=== PATIENT | female | born 1995 | race Two or more races ===

== ENCOUNTER 2016-04-04 21:21 | Emergency (ER) | payer SELFPAY ==
[2016-04-05] MEDS ORDERED: LIDOCAINE 1% INJ-PF (10 MG/ML) 30 ML SDV INJ ONE (01:14)
[2016-04-05] MEDS ORDERED: BUPIVACAINE HCL 0.5 % INJ/PF 30 ML SDV INJ ONE (01:14)
[2016-04-05] MEDS ORDERED: CEPHALEXIN 500 MG CAPSULE PO ONE (02:20)
--- NOTE | 2016-04-05 02:20 | ER Document Report ---
ED General - General Chief Complaint: Foot Pain Stated Complaint: LEFT FOOT PAIN Notes: Patient is a 20-year-old female presents for complaints of pain in her large toe. History was obtained using the language line for English interpretation. Initial japanese interpreter used for history of present illness and exam was japanese interpreter number [id number]. Patient is 20-year-old female complains of pain in her left big toe. Patient said she had trimmed her toenails to close several days ago and then developed a swelling on the medial aspect of the nailbed. This causes a paronychia. She did apply pressure to the area leave some pus. No fevers. No vomiting. It hurts to walk or ambulate. This or swelling into the foot itself. TRAVEL OUTSIDE OF THE [place] IN LAST 30 DAYS: No - Related Data Allergies/Adverse Reactions: No Known Allergies Allergy (Verified 04/13/15 16:59) Past Medical History - Social History Smoking Status: Unknown if Ever Smoked Frequency of alcohol use: None Drug Abuse: None Family History: Reviewed & Not Pertinent Patient has suicidal ideation: No Patient has homicidal ideation: No Renal/ Medical History: Denies: Hx Peritoneal Dialysis - Immunizations Immunizations up to date: Yes Hx Diphtheria, Pertussis, Tetanus Vaccination: No Review of Systems - Review of Systems Notes: My Normal Review Basic REVIEW OF SYSTEMS: CONSTITUTIONAL : Denies fever, chills, or sweats. Denies recent illness. MUSCULOSKELETAL: Paronychia of left big toe. SKIN: Denies rash or skin lesions. NEUROLOGICAL: Denies altered mental status or loss of consciousness. Denies weakness or paralysis or loss of use of either side. Denies problems with gait or speech. Denies sensory or motor loss. ALL OTHER SYSTEMS REVIEWED AND NEGATIVE. Physical Exam - Vital signs Vitals: Temp Pulse Resp BP Pulse Ox 98.1 F 82 16 138/72 H 99 04/04/16 21:21 04/04/16 21:21 04/04/16 21:21 04/04/16 21:21 04/04/16 21:21 - Notes Notes: General Appearance: Well nourished, alert, cooperative, no acute distress, no obvious discomfort. Vitals: reviewed, See vital signs table. Extremities: strength 5/5 in all extremities, good pulses in all extremities, redness and swelling to the medial side of the left big toenail. This consistent with paronychia.., no edema. Skin: warm, dry, appropriate color, no rash Neuro: speech clear, oriented x 3, normal affect, responds appropriately to questions. Course - Vital Signs Vital signs: Temp Pulse Resp BP Pulse Ox 98.1 F 62 16 132/88 H 98 04/05/16 02:51 04/05/16 02:51 04/05/16 02:51 04/05/16 02:51 04/05/16 02:51 - Transfer of Care Notes: 04/05/16 06:40 I did do a wedge resection of the medial aspect of left toe. This is to read relief to the paronychia. Patient will be placed on Keflex. Patient encouraged return to ER if she has increased redness or swelling or feels unwell. Patient agrees with plan will be discharged home. Ductions were into the patient by me verbally using the language line japanese interpreter #[id number]. Dictation of this chart was performed using voice recognition software; therefore, there may be some unintended grammatical errors. Procedures - Nail Trephanation/Removal Left Great toe Nail Trepanation/Removal Location: wedge resection left toenail Betadine prep applied: No - ChloraPrep used Method of Drainage: Other - Small wedge medial aspect of left PICC toe was cut and freed up using scissors and then pulled away with tweezers. Notes: 04/05/16 06:42 No complications. 04/05/16 06:42 Discharge - Discharge Clinical Impression: Paronychia Qualifiers: Laterality: left Qualified Code(s): L03.012 - Cellulitis of left finger Condition: Good Disposition: HOME, SELF-CARE Additional Instructions: Paronychia You have an infection between the nail and the surrounding skin, called a paronychia. The germs infect the area after a minor skin injury, such as a hangnail. This infection is treated by releasing the pus. This is usually done by the skin from the nail. If the infection has spread underneath the nail, partial removal of the nail may be necessary. Hot-soak the area three or four times daily. Antibiotics are often given, but are not always necessary. Healing takes about a week. If pain or swelling becomes severe or if you develop fever or chills, call the doctor or return for re-examination. Please return to the ER immediately if you develop worsening swelling, redness, fevers, or feel unwell. Prescriptions: Cephalexin Monohydrate [Keflex 500 mg Capsule] 500 mg PO QID #28 capsule
[2016-04-05 02:52] VITALS: BP 132/88
== END 2016-04-05 02:52 | disposition home or self-care (01) ==
LOC: ER 21:21
PROC: 0HDRXZZ Extraction of Toe Nail, External Approach (ICD-10-PCS; principal; 2016-04-04)
DX: M79.674 Pain in right toe(s) (principal); L03.032 Cellulitis of left toe; M79.675 Pain in left toe(s)
CPT/HCPCS: 99283

== ENCOUNTER 2017-03-01 13:19 | Emergency (ER) | payer SELFPAY ==
[2017-03-01 13:24] VITALS: BP 125/74
--- NOTE | 2017-03-01 15:18 | ER Document Report ---
ED Eye Complaint - General Chief Complaint: Eye Pain Stated Complaint: EYE PAIN Time Seen by Provider: 03/01/17 14:33 Mode of Arrival: Ambulatory Information source: Patient Notes: Patient is 21 year old female who presents back to Er from a visit on 02-25-17. with complaint of incrasing left eye pain. She was seen on the and diagnosed with a corneal abrasion and started on Poly trim drops. There was no known history of trauma. She woke up with the discomfort. She works as a house keeper. She denies any other Medical history. She states she has continued to use the drops as instructed. States she started to get better but 2 days ago pain increased. She contacted the correctional medicine physician given for followup but could not get appointment until next week. She does not wear any corrective or cosmetic lenses. TRAVEL OUTSIDE OF THE [place] IN LAST 30 DAYS: No - HPI Onset: Other - 4 days Eye location: Left Injury: No Occurred at: Other - unknown woke up with Quality of pain: Achy, Sharp Severity: Moderate Pain Level: 3 Associated symptoms: Burning, Pain, Redness - Related Data Allergies/Adverse Reactions: No Known Allergies Allergy (Verified 03/01/17 13:21) Past Medical History - General Information source: Patient - Social History Smoking Status: Never Smoker Cigarette use (# per day): No Chew tobacco use (# tins/day): No Smoking Education Provided: No Frequency of alcohol use: None Drug Abuse: None Family History: Reviewed & Not Pertinent Patient has suicidal ideation: No Patient has homicidal ideation: No Renal/ Medical History: Denies: Hx Peritoneal Dialysis - Immunizations Immunizations up to date: Yes Hx Diphtheria, Pertussis, Tetanus Vaccination: No Review of Systems - Review of Systems Constitutional: No symptoms reported EENT: Eye pain, Eye discharge, Blurred vision Cardiovascular: No symptoms reported Respiratory: No symptoms reported Gastrointestinal: No symptoms reported Genitourinary: No symptoms reported Female Genitourinary: No symptoms reported Musculoskeletal: No symptoms reported Skin: No symptoms reported Hematologic/Lymphatic: No symptoms reported Neurological/Psychological: No symptoms reported -: Yes All other systems reviewed and negative Physical Exam - Vital signs Vitals: Temp Pulse Resp BP Pulse Ox 98.1 F 78 14 125/74 99 03/01/17 13:24 03/01/17 13:24 03/01/17 13:24 03/01/17 13:24 03/01/17 13:24 Interpretation: Normal - General General appearance: Alert, Other - Uncomfortable appearing - HEENT Head: Normocephalic, Atraumatic Eyes: Tears Conjunctiva: Injected Cornea: Corneal ulcer, Other - Under slit lamp there appears to be an area at about the 4 oclock position that extends upward about 3 to 4 mm and appears to be about 2 mm wide. It is greyish in color and appears 3 demential. it does have an irregular shape. Appears that it is a corneal abscess by looks. Extraocular movements intact: Yes Eyelashes: Normal Pupils: PERRL Nasal: Normal Mouth/Lips: Normal Mucous membranes: Normal, Moist - Respiratory Respiratory status: No respiratory distress Breath sounds: Normal. No: Decreased air movement, Nonproductive cough, Productive cough, Rales, Rhonchi, Stridor, Wheezing, Other - Cardiovascular Rhythm: Regular Heart sounds: Normal auscultation Murmur: No - Neurological Neuro grossly intact: Yes Cognition: Normal Orientation: AAOx4 [place] Coma Scale Eye Opening: Spontaneous Rose Coma Scale Verbal: Oriented [place] Coma Scale Motor: Obeys Commands [place] Coma Scale Total: 15 Speech: Normal Course - Vital Signs Vital signs: Temp Pulse Resp BP Pulse Ox 98.1 F 78 14 125/74 99 03/01/17 13:24 03/01/17 13:24 03/01/17 13:24 03/01/17 13:24 03/01/17 13:24 - Transfer of Care Notes: 03/05/17 09:[address] Manuel also look at under slit lamp. He was in agreement with me and also suggested that we get her to an correctional medicine physician at once. I put out a call to Assessment Nurse Practitioner block m[facility] Dr Peña who contacted me right back and when I explained to him the findings he requested that she be sent to his office on discharge. Since it was 4pm already patient was discharged directly to his office. I had the nurse print a map and it showed the office to be within 1 to 2 blocks of the hospital. We did communication through the senior game developer computer so patient understood the severity of the condition and that if she did not go directly there she could lose her eyesight in the left eye. She acknowledged understanding of these orders. Discharge - Discharge Clinical Impression: Corneal abscess of left eye Corneal abrasion Qualifiers: Encounter type: subsequent encounter Laterality: left Qualified Code(s): S05.02XD - Injury of conjunctiva and corneal abrasion without foreign body, left eye, subsequent encounter Disposition: HOME, SELF-CARE Additional Instructions: As we have discussed and through the content developer go directly to Dr. Peña he will continue with your care for this problem. Given a problem after that return to ER for recheck. Forms: Elevated Blood Pressure Referrals: KIKO PEÑA DO [ACTIVE STAFF] - Follow up as needed
== END 2017-03-01 15:28 | disposition home or self-care (01) ==
LOC: ER 13:19
DX: S05.02XA Injury of conjunctiva and corneal abrasion without foreign body, left eye, initial encounter (principal); H16.312 Corneal abscess, left eye; X58.XXXA Exposure to other specified factors, initial encounter; H57.12 Ocular pain, left eye
CPT/HCPCS: 99283

== ENCOUNTER 2017-06-01 19:52 | Emergency (ER) | payer SELFPAY ==
[2017-06-01 20:56] LABS: APPEARANCE,URINE CLEAR; BILIRUBIN,URINE NEGATIVE (NEGATIVE); COLOR,URINE STRAW; GLUCOSE, URINE NEGATIVE (NEGATIVE); KETONES,URINE NEGATIVE (NEGATIVE); LEUKOCYTE ESTERASE,URINE MODERATE (NEGATIVE); NITRITE,URINE NEGATIVE (NEGATIVE); PROTEIN,URINE NEGATIVE (NEGATIVE); URINE SPECIFIC GRAVITY 1.015; UROBILINOGEN,URINE NEGATIVE mg/dL (<2.0)
--- NOTE | 2017-06-01 20:58 | ER Document Report ---
ED General - General Chief Complaint: Abdominal Pain Stated Complaint: ABDOMINAL PAIN Time Seen by Provider: 06/01/17 20:22 Mode of Arrival: Ambulatory Information source: Patient - window sash installer used Notes: 21-year-old female with no reported past medical history presents with complaints of left lower quadrant pain that started 1 week prior to arrival. She states initially she had pain in the right and left lower quadrant but now is only feeling pain in the left lower quadrant. She describes it as a cramping pain that is intermittent. She denies any prior similar symptoms. She has not taken any medication for this. She denies any vaginal discharge, dysuria but does report increased urinary frequency. She is sexually active with her . She denies concern for sexually transmitted disease. Last menstrual period was May 01, 2017. She does not believe that she is . She does not use control. She denies any fever, chills, nausea, vomiting, back pain. TRAVEL OUTSIDE OF THE [place] IN LAST 30 DAYS: No - HPI Onset: Last week Onset/Duration: Gradual, Intermittent Quality of pain: Cramping Severity: Mild Pain Level: 1 Associated symptoms: denies: Fever, Nausea, Vomiting Exacerbated by: Movement, Coughing Relieved by: Remaining still Similar symptoms previously: No Recently seen / treated by doctor: No - Related Data Allergies/Adverse Reactions: No Known Allergies Allergy (Verified 06/01/17 19:56) Past Medical History - General Information source: Patient - Social History Smoking Status: Never Smoker Frequency of alcohol use: None Drug Abuse: None Lives with: Family, Spouse/Significant other Family History: Reviewed & Not Pertinent Patient has suicidal ideation: No - Medical History Medical History: Negative Renal/ Medical History: Denies: Hx Peritoneal Dialysis - Immunizations Immunizations up to date: Yes Hx Diphtheria, Pertussis, Tetanus Vaccination: No Review of Systems - Review of Systems Constitutional: See HPI. denies: Chills, Fever Cardiovascular: denies: Chest pain Respiratory: denies: Short of breath Gastrointestinal: Abdominal pain. denies: Diarrhea, Nausea, Vomiting, Constipation, Poor appetite, Poor fluid intake Genitourinary: Frequency. denies: Dysuria Female Genitourinary: Last menstrual period - 05/01/17, Irregular period. denies : Vaginal discharge, Vaginal odor, Painful intercourse Physical Exam - Vital signs Vitals: Temp Pulse Resp BP Pulse Ox 98.6 F 79 18 141/73 H 100 06/01/17 20:10 06/01/17 20:10 06/01/17 20:10 06/01/17 20:10 06/01/17 20:10 Interpretation: Normal. No: Tachycardic, Febrile - General General appearance: Appears well, Alert In distress: None - Abdominal Inspection: Normal Distension: No distension Bowel sounds: Normal Tenderness: Tender. No: McBurney's point - Tender to palpation in the left lower quadrant without guarding or rebound, Mo's sign, Guarding, Rebound Organomegaly: No organomegaly - Genitourinary External exam: Normal. No: Lesions Speculum exam: Cervix closed, Vaginal discharge Vaginal bleeding: None Bimanuel exam: Normal Course - Re-evaluation Re-evalutation: 06/01/17 21:07 Pelvic exam performed. Tylenol administered for pain HCG positive 06/01/17 23:28 21-year-old female presents with complaint of left lower quadrant pain that started 1 week prior to arrival. Upon arrival vitals reviewed and within normal limits. Patient does not appear toxic or dehydrated. She is in no acute distress. Patient found to have a positive test with a hCG quant of 485. Transvaginal ultrasound was performed but could not identify an intrauterine .Other significant findings include a UTI for which the patient received Macrobid.window sash installer was used to go over results findings, instructions. Patient was instructed to return in 48 hours for repeat quant. She was also instructed to return to the emergency department if she experienced any vaginal bleeding or worsening abdominal pain. Patient expresses understanding. She was provided a prescription for Macrobid. Laboratory 06/01/17 06/01/17 06/01/17 20:30 21:06 21:06 WBC RBC Hgb Hct MCV MCH MCHC RDW Plt Count Seg Neutrophils % Lymphocytes % Monocytes % Eosinophils % Basophils % Absolute Neutrophils Absolute Lymphocytes Absolute Monocytes Absolute Eosinophils Absolute Basophils Beta HCG, Quant Total Beta HCG Urine Color STRAW Urine Appearance CLEAR Urine pH 7.0 Ur Specific [place] 1.015 Urine Protein NEGATIVE Urine Glucose (UA) NEGATIVE Urine Ketones NEGATIVE Urine Blood NEGATIVE Urine Nitrite NEGATIVE Urine Bilirubin NEGATIVE Urine Urobilinogen NEGATIVE Ur Leukocyte Esterase MODERATE H Urine WBC (Auto) 1 Urine RBC (Auto) 1 Urine Bacteria (Auto) TRACE Squamous Epi Cells Auto 2 Urine Mucus (Auto) RARE Urine Ascorbic Acid NEGATIVE Urine HCG, Qual POSITIVE H Bacteria (Wet Prep) 3+ BACTERIA SEEN Trichomonas (Wet Prep) NO TRICHOMONAS SEEN Vaginal WBC 3+ WBCS SEEN Vaginal Yeast NO YEAST SEEN Chlamydia DNA (PCR) NOT DETECTED N.gonorrhoeae DNA (PCR) NOT DETECTED Blood Type Rhogam Indicated 06/01/17 06/01/17 06/01/17 21:20 21:20 21:25 WBC 14.8 H RBC 4.25 Hgb 13.4 Hct 38.8 MCV 91 MCH 31.5 MCHC 34.5 RDW 12.9 Plt Count 415 Seg Neutrophils % 51.4 Lymphocytes % 41.8 Monocytes % 5.1 Eosinophils % 1.2 Basophils % 0.5 Absolute Neutrophils 7.6 Absolute Lymphocytes 6.2 H Absolute Monocytes 0.7 Absolute Eosinophils 0.2 Absolute Basophils 0.1 Beta HCG, Quant 483.93 H Total Beta HCG POSITIVE Urine Color Urine Appearance Urine pH Ur Specific [place] Urine Protein Urine Glucose (UA) Urine Ketones Urine Blood Urine Nitrite Urine Bilirubin Urine Urobilinogen Ur Leukocyte Esterase Urine WBC (Auto) Urine RBC (Auto) Urine Bacteria (Auto) Squamous Epi Cells Auto Urine Mucus (Auto) Urine Ascorbic Acid Urine HCG, Qual Bacteria (Wet Prep) Trichomonas (Wet Prep) Vaginal WBC Vaginal Yeast Chlamydia DNA (PCR) N.gonorrhoeae DNA (PCR) Blood Type O POSITIVE Rhogam Indicated RHOGAM NOT INDICATED Obstetrics Ultrasound 06/01/17 21:05 IMPRESSION: No intrauterine identified. Differential diagnosis includes early occult viable gestation, gestational loss, and occult ectopic gestation. - Vital Signs Vital signs: Temp Pulse Resp BP Pulse Ox 98.6 F 79 18 141/73 H 100 06/01/17 20:10 06/01/17 20:10 06/01/17 20:10 06/01/17 20:10 06/01/17 20:10 - Laboratory Result Diagrams: 06/01/17 21:20 Laboratory results interpreted by me: 06/01/17 06/01/17 06/01/17 20:30 21:20 21:25 WBC 14.8 H Absolute Lymphocytes 6.2 H Beta HCG, Quant 483.93 H Ur Leukocyte Esterase MODERATE H Urine HCG, Qual POSITIVE H Procedures - Pelvic Exam Pelvic exam Cultures obtained: Yes Wet prep obtained: Yes Herpes culture obtained: No POC sent to lab: Yes Foreign body removed: No Bimanual exam performed: Yes - No adnexal mass or tenderness Discharge - Discharge Clinical Impression: Abdominal pain during , UTI (urinary tract infection) Condition: Good Disposition: HOME, SELF-CARE Additional Instructions: Lolis pruebas de laboratorio hoy muestran que est embarazada. [place] nivel de hormonas es muy bajo y no hemos podido detectar un embarazo en [place] ultrasonido. Tambin descubrimos que tiene rashmi infeccin del tracto urinario. Debe regresar en 48 horas para repetir el nivel de la hormona. Por favor regrese a la steve de emergencia si experimenta un empeoramiento del dolor, sangrado vaginal. Est muy temprano en [place] embarazo y en [place] tempranas es normal no krystal un embarazo intrauterino en el ultrasonido. Por favor, anita un seguimiento con el departamento de wendi para la atencin . Prescriptions: Nitrofurantoin Monohyd/M-Cryst [Macrobid 100 mg Capsule] 1 tab PO BID #20 capsule Forms: Follow-Up Outpatient Testing
[2017-06-01] MEDS ORDERED: ACETAMINOPHEN 325 MG TABLET PO ONE (21:06)
[2017-06-01 21:30] LABS: BACTERIA (WET MOUNT) 3+ BACTERIA SEEN; T.VAGINALIS (WET MOUNT) NO TRICHOMONAS SEEN; WBCS (WET MOUNT) 3+ WBCS SEEN; YEAST (WET MOUNT) NO YEAST SEEN
[2017-06-01 21:37] LABS: ABSOLUTE BASOPHILS # (AUTO) 0.1 10^3/uL (0.0-0.2); ABSOLUTE EOSINOPHILS # (AUTO) 0.2 10^3/uL (0.0-0.6); ABSOLUTE LYMPHOCYTES (AUTO) 6.2 10^3/uL (0.5-4.7); ABSOLUTE MONOCYTES (AUTO) 0.7 10^3/uL (0.1-1.4); ABSOLUTE NEUT (AUTO) 7.6 10^3/uL (1.7-8.2); BASOPHILS % (AUTO) 0.5 % (0-2); EOSINOPHILS % (AUTO) 1.2 % (0-6); HEMATOCRIT 38.8 % (36.0-47.0); HEMOGLOBIN 13.4 g/dL (12.0-15.5); LYMPHOCYTES % (AUTO) 41.8 % (13-45); MEAN CORPUSCULAR HEMOGLOBIN 31.5 pg (27.0-33.4); MEAN CORPUSCULAR HGB CONC 34.5 g/dL (32.0-36.0); MEAN CORPUSCULAR VOLUME 91 fl (80-97); MONOCYTES % (AUTO) 5.1 % (3-13); PLATELET COUNT 415 10^3/uL (150-450); RED BLOOD COUNT 4.25 10^6/uL (3.72-5.28); RED CELL DISTRIBUTION WIDTH 12.9 % (11.5-14.0); SEGMENTED NEUTROPHILS % (AUTO) 51.4 % (42-78); TOTAL CELLS COUNTED % (AUTO) 100 %; WHITE BLOOD COUNT 14.8 10^3/uL (4.0-10.5)
[2017-06-01] MEDS ORDERED: NITROFURANTOIN MONOHYD/M-CRYST 100 MG CAPSULE PO ONE (22:18)
[2017-06-01 22:42] LABS: CHLAM PCR NOT DETECTED (NOT DETECT); GON PCR NOT DETECTED (NOT DETECT)
--- NOTE | 2017-06-01 22:59 | RADIOLOGY REPORT (SQ) ---
EXAM DESCRIPTION: U/S OB TRANSVAGINAL W/O DOP CLINICAL HISTORY: 21 years, Female, pain in COMPARISON: None. TECHNIQUE: Transvaginal LIMITATIONS: None. FINDINGS: No intrauterine discerned. 8.5 cm uterus with 1.8 cm endometrial stripe thickness, 2.4 cm cervical length, nabothian cysts, 3.6 cm right ovary, 2.6 cm left ovary, appear otherwise normal, nongravid size, shape, echotexture, and vascularity. No free fluid. IMPRESSION: No intrauterine identified. Differential diagnosis includes early occult viable gestation, gestational loss, and occult ectopic gestation.
[2017-06-02 00:37] VITALS: BP 138/72
== END 2017-06-02 00:37 | disposition home or self-care (01) ==
LOC: ER 19:52
DX: O23.41 Unspecified infection of urinary tract in pregnancy, first trimester (principal); O26.891 Other specified pregnancy related conditions, first trimester; R10.32 Left lower quadrant pain; Z3A.01 Less than 8 weeks gestation of pregnancy
CPT/HCPCS: 99284; 86900; 86901; 36415; 87210; 84702; 85025; 81025; 81001; 87491; 87591; 76817; J8499

== ENCOUNTER → 2017-06-04 | Outpatient (CLI) | payer SELFPAY | LOC: LAB 15:12 | PROVIDERS: ATTEND Student in an Organized Health Care Education/Training Program | DX: O26.899 Other specified pregnancy related conditions, unspecified trimester (principal); R10.9 Unspecified abdominal pain; Z3A.00 Weeks of gestation of pregnancy not specified | CPT/HCPCS: 36415; 84702 ==

== ENCOUNTER 2017-06-07 13:30 | Emergency (ER) | payer SELFPAY ==
[2017-06-07 15:51] LABS: APPEARANCE,URINE CLOUDY; BILIRUBIN,URINE NEGATIVE (NEGATIVE); COLOR,URINE YELLOW; GLUCOSE, URINE NEGATIVE (NEGATIVE); KETONES,URINE NEGATIVE (NEGATIVE); LEUKOCYTE ESTERASE,URINE NEGATIVE (NEGATIVE); NITRITE,URINE NEGATIVE (NEGATIVE); PROTEIN,URINE NEGATIVE (NEGATIVE); URINE SPECIFIC GRAVITY 1.009; UROBILINOGEN,URINE NEGATIVE mg/dL (<2.0)
--- NOTE | 2017-06-07 17:37 | RADIOLOGY REPORT (SQ) ---
EXAM DESCRIPTION: U/S OB TRANSVAGINAL W/O DOP COMPLETED DATE/TIME: 06/07/2017 5:19 pm REASON FOR STUDY: pelvic pain/preg COMPARISON: 06/01/2017 TECHNIQUE: Transvaginal static and realtime grayscale images acquired of the pelvis. Additional ruma cted spectral and color Doppler images recorded. All images stored on PACs. bHC,004 06/07/2017 ; 2,065 on 06/04/2017 LIMITATIONS: None. FINDINGS: FETUS: Living intrauterine . EGA: 5 weeks 3 days by gestational sac size. pole and yolk sac and cardiac motion not seen. DAVID: 02/04/2018 FHR: Not seen. Beats per minute. SUBCHORIONIC BLEED: Questionable. SIZE OF BLEED: 4 x 6 mm. UTERUS: No masses or anomalies. 9.1 x 4.8 x 4.7 cm. CERVICAL LENGTH: 3.4 cm. Closed. RIGHT ADNEXA: Normal ovary with normal vascular flow. 2.6 x 2.5 x 4 cm. There is a 1 x 1.4 x 0.9 cm hypoechoic area. No adnexal free fluid. No adnexal masses. LEFT ADNEXA: Normal ovary with normal vascular flow. 2.7 x 1.8 x 2.1 centimeters. No adnexal free fluid. No adnexal masses. FREE FLUID: None. OTHER: No other significant finding. IMPRESSION: There appears to be an early intrauterine gestational 5 weeks 3 days based upon gestatio nal sac size. Follow-up as clinically indicated. Trimester of : First - 0 to 13 weeks. TECHNICAL DOCUMENTATION: JOB ID: [id number] [employer]- All Rights Reserved Reading location - IP/workstation name: [email or web address]
--- NOTE | 2017-06-07 18:14 | ER Document Report ---
ED General - General Chief Complaint: Abdominal Pain Stated Complaint: ABDOMINAL PAIN Time Seen by Provider: 06/07/17 15:18 Mode of Arrival: Ambulatory Information source: Patient Notes: Patient was interviewed through Candi whitmore avionics shop supervisor. Patient states that she was seen here recently and instructed that she was and had a urinary tract infection. She has been taking her antibiotic but she continues to have some lower abdominal pain. Ultrasound on her original visit showed no evidence of an IUP. However patient's beta was only 2400. Patient has had no vaginal discharge or bleeding. No vomiting. Patient has been one other time. Nothing makes pain better or worse. It does not radiate. Patient describes the pain as sharp. It is intermittent. TRAVEL OUTSIDE OF THE [place] IN LAST 30 DAYS: No - Related Data Allergies/Adverse Reactions: No Known Allergies Allergy (Verified 06/01/17 19:56) Past Medical History - General Information source: Patient - Social History Smoking Status: Never Smoker Frequency of alcohol use: None Drug Abuse: None Family History: Reviewed & Not Pertinent Patient has suicidal ideation: No Patient has homicidal ideation: No Renal/ Medical History: Denies: Hx Peritoneal Dialysis - Immunizations Immunizations up to date: Yes Hx Diphtheria, Pertussis, Tetanus Vaccination: No Review of Systems - Review of Systems Constitutional: denies: Chills, Fever EENT: denies: Nose pain, Nose congestion Cardiovascular: denies: Chest pain, Palpitations Respiratory: denies: Cough, Short of breath -: Yes All other systems reviewed and negative Physical Exam - Vital signs Vitals: Temp Pulse Resp BP Pulse Ox 98.6 F 77 16 132/79 H 100 06/07/17 13:40 06/07/17 13:40 06/07/17 13:40 06/07/17 13:40 06/07/17 13:40 Interpretation: Normal - General General appearance: Appears well, Alert - HEENT Head: Normocephalic, Atraumatic Eyes: Normal Pupils: PERRL - Respiratory Respiratory status: No respiratory distress Chest status: Nontender Breath sounds: Normal Chest palpation: Normal - Cardiovascular Rhythm: Regular Heart sounds: Normal auscultation Murmur: No - Abdominal Inspection: Normal Distension: No distension Bowel sounds: Normal Tenderness: Nontender Organomegaly: No organomegaly - Back Back: Normal, Nontender - Extremities General upper extremity: Normal inspection, Nontender, Normal color, Normal ROM , Normal temperature General lower extremity: Normal inspection, Nontender, Normal color, Normal ROM , Normal temperature, Normal weight bearing. No: Freddie's sign - Neurological Neuro grossly intact: Yes Cognition: Normal Orientation: AAOx4 [place] Coma Scale Eye Opening: Spontaneous [place] Coma Scale Verbal: Oriented [place] Coma Scale Motor: Obeys Commands [place] Coma Scale Total: 15 Speech: Normal Motor strength normal: LUE, RUE, LLE, RLE Sensory: Normal - Psychological Associated symptoms: Normal affect, Normal mood - Skin Skin Temperature: Warm Skin Moisture: Dry Skin Color: Normal Course - Vital Signs Vital signs: Temp Pulse Resp BP Pulse Ox 98.6 F 77 16 132/79 H 100 06/07/17 13:40 06/07/17 13:40 06/07/17 13:40 06/07/17 13:40 06/07/17 13:40 - Laboratory Laboratory results interpreted by me: 06/07/17 06/07/17 15:20 15:30 Beta HCG, Quant 7004.40 H Urine Ascorbic Acid 20 H - Diagnostic Test Radiology reviewed: Image reviewed, Reports reviewed - Ultrasound shows an early IUP without evidence of ectopic Discharge - Discharge Clinical Impression: Abdominal pain affecting Condition: Stable Disposition: HOME, SELF-CARE Instructions: Pelvic Pain in ([facility])
[2017-06-07 18:25] VITALS: BP 133/73
== END 2017-06-07 18:25 | disposition home or self-care (01) ==
LOC: ER 13:30
DX: O23.40 Unspecified infection of urinary tract in pregnancy, unspecified trimester (principal); O26.899 Other specified pregnancy related conditions, unspecified trimester; R10.30 Lower abdominal pain, unspecified; Z3A.00 Weeks of gestation of pregnancy not specified
CPT/HCPCS: 36415; 76817; 81001; 84702; 99284

== ENCOUNTER → 2017-07-05 | Outpatient (CLI) | payer SELFPAY ==
--- NOTE | 2017-07-05 16:07 | RADIOLOGY REPORT (SQ) ---
EXAM DESCRIPTION: U/S [id number] TRNABD 1GES W/ODOP COMPLETED DATE/TIME: 07/05/2017 3:43 pm REASON FOR STUDY: Z34.81 ENCOUNTER FOR SUPRVSN OF NORMAL , FIRST TRIMESTER Z34.81 ENCOUNTE R FOR SUPRVSN OF NORMAL , FIRST TRIM COMPARISON: 06/07/2017. TECHNIQUE: Transabdominal static and realtime grayscale images acquired of the pelvis. Additional se lected spectral and color Doppler images recorded. All images stored on PACs. bHCG: Not provided. LIMITATIONS: None. FINDINGS: FETUS: Living intrauterine . EGA: 8 week 6 day DAVID: 02/08/2018 FHR: 178 beats per minute. SUBCHORIONIC BLEED: No. SIZE OF BLEED: Not applicable. UTERUS: No masses. No anomalies. CERVICAL LENGTH: 4 cm. Closed. RIGHT ADNEXA: Normal ovary with normal vascular flow. No adnexal free fluid. No adnexal masses. LEFT ADNEXA: Ovary not identified. No adnexal free fluid. No adnexal masses. FREE FLUID: None. OTHER: No other significant finding. IMPRESSION: LIVING INTRAUTERINE . EGA 8 weeks 6 day Trimester of : First - 0 to 13 weeks. TECHNICAL DOCUMENTATION: JOB ID: [id number] [employer]- All Rights Reserved Reading location - IP/workstation name: [email or web address]
== END ==
LOC: RAD 15:21
PROVIDERS: ATTEND Nurse Practitioner Women's Health
DX: Z34.81 Encounter for supervision of other normal pregnancy, first trimester (principal)
CPT/HCPCS: 76801

== ENCOUNTER 2018-06-25 12:09 | Emergency (ER) | payer SELFPAY ==
[2018-06-25] MEDS ORDERED: ONDANSETRON 4 MG TAB.RAPDIS PO ONE (12:35)
--- NOTE | 2018-06-25 12:38 | ER Document Report ---
ED Medical Screen (RME) - General Chief Complaint: Abdominal Pain Stated Complaint: ABDOMINAL PAIN Time Seen by Provider: 06/25/18 12:34 Primary Care Provider: BEATRIS BALTAZAR NP [Primary Care Provider] - Follow up as needed Mode of Arrival: Ambulatory Information source: Patient Notes: Patient is a 22-year-old female who presents with chief complaint of upper abdom inal pain with nausea and diarrhea. Patient reports symptoms started yesterday. Patient denies any vomiting or fever. Patient denies any history of surgeries to her abdomen. Patient is Gambian-speaking. Exam: Tenderness to palpation from periumbilical area to epigastric area. I have greeted and performed a rapid initial assessment of this patient. A comprehensive ED assessment and evaluation of the patient, analysis of test results and completion of the medical decision making process will be conducted by additional ED providers. Dictation of this chart was performed using voice recognition software; therefore, there may be some unintended grammatical errors. TRAVEL OUTSIDE OF THE [place] IN LAST 30 DAYS: No - Related Data Allergies/Adverse Reactions: No Known Allergies Allergy (Verified 06/01/17 19:56) Past Medical History Renal/ Medical History: Denies: Hx Peritoneal Dialysis - Immunizations Immunizations up to date: Yes Hx Diphtheria, Pertussis, Tetanus Vaccination: No Physical Exam - Vital signs Vitals: Temp Pulse Resp BP Pulse Ox 97.3 F 75 16 120/78 100 06/25/18 12:14 06/25/18 12:14 06/25/18 12:14 06/25/18 12:14 06/25/18 12:14 Course - Vital Signs Vital signs: Temp Pulse Resp BP Pulse Ox 97.3 F 75 16 120/78 100 06/25/18 12:14 06/25/18 12:14 06/25/18 12:14 06/25/18 12:14 06/25/18 12:14 Doctor's Discharge - Discharge Referrals: BEATRIS BALTAZAR NP [Primary Care Provider] - Follow up as needed
[2018-06-25 13:08] LABS: ABSOLUTE BASOPHILS # (AUTO) 0.1 10^3/uL (0.0-0.2); ABSOLUTE EOSINOPHILS # (AUTO) 0.5 10^3/uL (0.0-0.6); ABSOLUTE LYMPHOCYTES (AUTO) 2.9 10^3/uL (0.5-4.7); ABSOLUTE MONOCYTES (AUTO) 0.6 10^3/uL (0.1-1.4); ABSOLUTE NEUT (AUTO) 8.2 10^3/uL (1.7-8.2); BASOPHILS % (AUTO) 0.5 % (0-2); EOSINOPHILS % (AUTO) 3.7 % (0-6); HEMATOCRIT 42.7 % (36.0-47.0); HEMOGLOBIN 14.6 g/dL (12.0-15.5); LYMPHOCYTES % (AUTO) 23.9 % (13-45); MEAN CORPUSCULAR HEMOGLOBIN 31.2 pg (27.0-33.4); MEAN CORPUSCULAR HGB CONC 34.1 g/dL (32.0-36.0); MEAN CORPUSCULAR VOLUME 92 fl (80-97); PLATELET COUNT 443 10^3/uL (150-450); RED BLOOD COUNT 4.66 10^6/uL (3.72-5.28); RED CELL DISTRIBUTION WIDTH 13.1 % (11.5-14.0); SEGMENTED NEUTROPHILS % (AUTO) 66.9 % (42-78); TOTAL CELLS COUNTED % (AUTO) 100 %; WHITE BLOOD COUNT 12.3 10^3/uL (4.0-10.5)
[2018-06-25 13:17] LABS: APPEARANCE,URINE SLIGHTLY-CLOUDY; BILIRUBIN,URINE NEGATIVE (NEGATIVE); COLOR,URINE YELLOW; GLUCOSE, URINE NEGATIVE (NEGATIVE); KETONES,URINE NEGATIVE (NEGATIVE); LEUKOCYTE ESTERASE,URINE NEGATIVE (NEGATIVE); NITRITE,URINE NEGATIVE (NEGATIVE); PROTEIN,URINE NEGATIVE (NEGATIVE); URINE SPECIFIC GRAVITY 1.026; UROBILINOGEN,URINE NEGATIVE mg/dL (<2.0)
[2018-06-25 13:29] LABS: ALANINE AMINOTRANSFERASE 52 U/L (9-52); ALBUMIN 5.1 g/dL (3.5-5.0); ALKALINE PHOSPHATASE 116 U/L (38-126); ANION GAP 12 (5-19); ASPARTATE AMINO TRANSFERASE 35 U/L (14-36); BILIRUBIN,DIRECT 0.2 mg/dL (0.0-0.4); BILIRUBIN,TOTAL 0.4 mg/dL (0.2-1.3); BLOOD UREA NITROGEN 10 mg/dL (7-20); CALCIUM 10.2 mg/dL (8.4-10.2); CARBON DIOXIDE 21 mmol/L (22-30); CHLORIDE 110 mmol/L (98-107); GLUCOSE 96 mg/dL (75-110); LIPASE 50.4 U/L (23-300); POTASSIUM 4.3 mmol/L (3.6-5.0); SODIUM 143.1 mmol/L (137-145); TOTAL PROTEIN 8.7 g/dL (6.3-8.2)
[2018-06-25] MEDS ORDERED: MAG HYDROX/AL HYDROX/SIMETH SUSP 30 ML UDCUP PO ONE (13:38)
[2018-06-25] MEDS ORDERED: ONDANSETRON HCL INJ/PF 4 MG/2 ML SDV IV ONE (13:38)
[2018-06-25] MEDS ORDERED: FAMOTIDINE 20 MG TABLET PO ONE (13:38)
--- NOTE | 2018-06-25 13:39 | ER Document Report ---
ED General - General Chief Complaint: Abdominal Pain Stated Complaint: ABDOMINAL PAIN Time Seen by Provider: 06/25/18 12:34 Primary Care Provider: BEATRIS BALTAZAR NP [NO LOCAL MD] - Follow up as needed Mode of Arrival: Ambulatory Notes: 22-year-old female with no past medical history presents with burning/sharp epigastric pain nonradiating since last night after eating. It was off and on a ll night and then was worse this morning. Nausea but no vomiting. Has felt bloated as well. No diarrhea no fever. No history of gallstones. No history of abdominal surgery. TRAVEL OUTSIDE OF THE [place] IN LAST 30 DAYS: No - Related Data Allergies/Adverse Reactions: No Known Allergies Allergy (Verified 06/01/17 19:56) Past Medical History - General Information source: Patient - Social History Smoking Status: Never Smoker Chew tobacco use (# tins/day): No Frequency of alcohol use: None Drug Abuse: None Family History: Reviewed & Not Pertinent Patient has suicidal ideation: No Patient has homicidal ideation: No Renal/ Medical History: Denies: Hx Peritoneal Dialysis - Immunizations Immunizations up to date: Yes Hx Diphtheria, Pertussis, Tetanus Vaccination: No Review of Systems - Review of Systems Notes: REVIEW OF SYSTEMS GEN: Denies fever, chills, weight loss ENT: Denies sore throat, nasal discharge, ear pain EYES: Denies blurry vision, eye pain, discharge CV: Denies chest pain, palpitations, edema RESP: Denies cough, shortness of breath, wheezing GI: Nominal pain MSK: Denies joint pain/swelling, edema, SKIN: Denies rash, skin lesions LYMPH: Denies swollen glands/lymph nodes NEURO: Denies headache, focal weakness or numbness, dizziness PSYCH: Denies depression, suicidal or homicidal ideation PHYSICAL EXAMINATION General: No acute distress, well-nourished Head: Atraumatic, normocephalic ENT: Mouth normal, oropharynx moist, no exudates or tonsillar enlargement Eyes: Conjunctiva normal, pupils equal, lids normal Neck: No JVD, supple, no guarding CVS: Normal rate, regular rhythm, no murmurs Resp: No resp distress, equal and normal breath sounds bilaterally GI: Nondistended, soft, minimal epigastric tenderness to palpation, no rebound or guarding no Mo sign. Ext: No deformities, no edema, normal range of motion in upper and lower ext Back: No CVA or midline TTP Skin: No rash, warm Lymphatic: No lymphadeopathy noted Neuro: Awake, alert. Face symmetric. GCS 15. Physical Exam - Vital signs Vitals: Temp Pulse Resp BP Pulse Ox 97.3 F 75 16 120/78 100 06/25/18 12:14 06/25/18 12:14 06/25/18 12:14 06/25/18 12:14 06/25/18 12:14 Course - Re-evaluation Re-evalutation: 06/25/18 14:33 Burning epigastric abdominal pain with minimal tenderness a 22-year-old female. Rebound or guarding and no fever. Spells gastritis. Was given Maalox and Pepcid. Was reassessed at 2:50 PM. Feeling much better. No longer tender. L abs are normal. Do not suspect gallstones or pancreatitis based on workups/I do not think she needs a CT scan. Will place on Protonix. Patient p.o. challenge and is able to be discharged. Insert discharge 06/25/18 14:55 - Vital Signs Vital signs: Temp Pulse Resp BP Pulse Ox 97.3 F 75 16 120/78 100 06/25/18 12:14 06/25/18 12:14 06/25/18 12:14 06/25/18 12:14 06/25/18 12:14 - Laboratory Result Diagrams: 06/25/18 12:55 06/25/18 12:55 Laboratory results interpreted by me: 06/25/18 06/25/18 06/25/18 12:55 12:55 12:55 WBC 12.3 H Chloride 110 H Carbon Dioxide 21 L Total Protein 8.7 H Albumin 5.1 H Urine Blood MODERATE H Discharge - Discharge Clinical Impression: Epigastric abdominal pain Condition: Good Disposition: HOME, SELF-CARE Instructions: Abdominal Pain ([facility]) Prescriptions: Pantoprazole Sodium [Protonix [address] Tablet] 40 mg PO QAM #30 tablet. Referrals: BEATRIS BALTAZAR, EVENTS AND PROMOTIONS ASSISTANT [NO LOCAL MD] - Follow up as needed
[2018-06-25 16:11] VITALS: BP 121/76
== END 2018-06-25 16:11 | disposition home or self-care (01) ==
LOC: ER 12:09
DX: R10.13 Epigastric pain (principal); R10.816 Epigastric abdominal tenderness; R11.0 Nausea
CPT/HCPCS: 99284; 96374; 36415; 83690; 84703; 85025; 80053; 81001; S0119; J2405

== ENCOUNTER 2018-08-08 15:15 | Emergency (ER) | payer SELFPAY ==
[2018-08-08] MEDS ORDERED: ERYTHROMYCIN 0.5% OPH OINTMENT 3.5 GM TUBE OS ONE (18:41)
--- NOTE | 2018-08-08 18:41 | ER Document Report ---
ED Eye Complaint - General Chief Complaint: Eye Problem Stated Complaint: EYE PROBLEM Time Seen by Provider: 08/08/18 18:12 Information source: Patient Notes: Patient is a 22-year-old female comes to the emergency room with complaint of left eye pain and swelling. Patient states that started with a little bump on her eye on Monday it was the same it looked like a little pimple and today it got out of hand swelled up in the lower lid is swollen painful and itchy. It is to be noted the patient only speaks Upper Sorbian and we attempted to translate through her phone yumiko and then we changed it over to our interpretation line here at the hospital which also at the end of our examination today also and we finished up our conversation with her translation phone yumiko. It does not appear to we had any problem in communication we got that done mostly through our phone application here at the hospital. Patient's past pertinent medical history is 8 months and still currently breast-feeding. TRAVEL OUTSIDE OF THE [place] IN LAST 30 DAYS: No - HPI Onset: Other - 3 days ago Eye location: Left Injury: No Occurred at: Home Quality of pain: Achy Severity: Moderate Pain Level: 3 Safety glasses worn: No Contact lenses worn: No - Dry look on [employer] Associated symptoms: Itching - Probable checkup seem to be read someplace, Redness, Eyelid swelling - Related Data Allergies/Adverse Reactions: No Known Allergies Allergy (Verified 06/01/17 19:56) Past Medical History - General Information source: Patient - Social History Smoking Status: Never Smoker Cigarette use (# per day): No Chew tobacco use (# tins/day): No Smoking Education Provided: No Frequency of alcohol use: None Drug Abuse: None Lives with: Spouse/Significant other Family History: Reviewed & Not Pertinent Patient has suicidal ideation: No Patient has homicidal ideation: No Renal/ Medical History: Denies: Hx Peritoneal Dialysis - Immunizations Immunizations up to date: Yes Hx Diphtheria, Pertussis, Tetanus Vaccination: No Review of Systems - Review of Systems Constitutional: No symptoms reported EENT: Eye pain Cardiovascular: No symptoms reported Respiratory: No symptoms reported Gastrointestinal: No symptoms reported Genitourinary: No symptoms reported Female Genitourinary: No symptoms reported Musculoskeletal: No symptoms reported Skin: No symptoms reported Hematologic/Lymphatic: No symptoms reported Neurological/Psychological: No symptoms reported Physical Exam - Vital signs Vitals: Temp Pulse Resp BP Pulse Ox 98 F 69 18 132/75 H 99 08/08/18 15:19 08/08/18 15:19 08/08/18 15:19 08/08/18 15:19 08/08/18 15:19 Interpretation: Hypertensive - Notes Notes: PHYSICAL EXAMINATION: GENERAL: Well-appearing, well-nourished and in no acute distress. HEAD: Atraumatic, normocephalic. EYES: Edema to the left lower lid examination patient's area of concern is her left lower lid in the last area. Examination shows patient has moderate amount of swelling and area slight inversion of the swollen left lower eyelid shows where there is a "stye". Which started this process out on Monday. And has effectively gotten worse over the last 3 days. There is fluctuance felt on palpation of the lower lid. There is tautness to the skin. There is no oozing noted from the area of the medial being gland. But there is moderate tenderness to palpation. Visual acuity is not affected and vision is not affected at this time. ENT: Nares patent, oropharynx clear without exudates. Moist mucous membranes. NECK: Normal range of motion, supple without lymphadenopathy LUNGS: Breath sounds clear to auscultation bilaterally and equal. No wheezes rales or rhonchi. HEART: Regular rate and rhythm without murmurs Musculoskeletal: Normal range of motion, no pitting or edema. No cyanosis. NEUROLOGICAL: Normal speech, normal gait. Normal sensory, motor exams PSYCH: Normal mood, normal affect. SKIN: Warm, Dry, normal turgor, no rashes or lesions noted. - HEENT Visual acuity- Right eye: 20/25 Visual acuity- Left eye: 20/40 Visual acuity- Both eyes: 20/25 Corrective lenses worn: - unknown Course - Re-evaluation Re-evalutation: 08/08/18 18:[address] Sulema Burleson come over take a look at patient's presentation as well. She agrees that it is probably a slight abscess at this time but does not recommend an I&D in the local area. We are going to send patient home on warm compresses erythromycin ointment and I will place her on Keflex because she is breast-feeding for internal coverage. She is also suggested that I give her a referral to the corporate coordinator on-call and that today is Dr. Josep otoole - Vital Signs Vital signs: Temp Pulse Resp BP Pulse Ox 98 F 69 18 132/75 H 99 08/08/18 15:19 08/08/18 15:19 08/08/18 15:19 08/08/18 15:19 08/08/18 15:19 Discharge - Discharge Clinical Impression: Abscess of left lower eyelid Stye external Qualifiers: Laterality: left Eyelid: lower Qualified Code(s): H00.015 - Hordeolum externum left lower eyelid Condition: Stable Disposition: HOME, SELF-CARE Instructions: Abscess ([facility]), Cephalexin ([facility]) Additional Instructions: Home use warm moist compresses on the eye as we discussed. A wash rag as warm as you can stand it from the sink applied to the area and leave it cool down. Reheated up in the medical down approximately 3 times and then go away for a few hours return and repeat the process. Should you have any concerns or problems he can return to ER in the meantime for recheck. However have given you the name of the corporate coordinator communications designer it is imperative that you contact his office first thing in the morning and inform him that you were in the emergency room and you have a area on your lower eyelid that needs to be addressed. Again should you have any concerns or problems unable to get into see him return to ER for recheck. Prescriptions: Cephalexin Monohydrate [Keflex 500 mg Capsule] 500 mg PO Q6H 7 Days #28 capsule Referrals: ETELVINA VIGIL DO [ACTIVE STAFF] - Follow up as needed
[2018-08-08] MEDS ORDERED: ACETAMINOPHEN 325 MG TABLET PO ONE (19:13)
[2018-08-08 19:21] VITALS: BP 120/79
== END 2018-08-08 19:21 | disposition home or self-care (01) ==
LOC: ER 15:15
DX: H00.015 Hordeolum externum left lower eyelid (principal); H00.035 Abscess of left lower eyelid; H02.845 Edema of left lower eyelid; H57.12 Ocular pain, left eye; M79.89 Other specified soft tissue disorders
CPT/HCPCS: 99283; J3490

== ENCOUNTER 2018-08-10 08:50 | Emergency (ER) | payer SELFPAY ==
--- NOTE | 2018-08-10 11:26 | ER Document Report ---
HPI - HPI Patient complains to provider of: Left eyelid swelling Time Seen by Provider: 08/10/18 10:13 Onset/Duration: Persistent, Worse Quality of pain: Sharp Pain Level: 5 Context: Patient complains of left lower eyelid pain and swelling for the past 5 days. Patient was here 2 days ago and seen for this and prescribed oral and topical antibiotics. Patient did see the sleeper cutter yesterday and she was supposed to switch to TobraDex. Patient states she could not afford this medication and did not start it. Patient has continued to take the erythromycin as well as Keflex. Patient complains of increased pain and swelling. Patient does not wear glasses or contact lenses. Patient denies any change in vision. Patient states pain radiates to the left cheek and over to her left ear. Associated Symptoms: Other - Eyelid pain and swelling. denies: Fever Exacerbated by: Denies Relieved by: Denies Similar symptoms previously: No Recently seen / treated by doctor: Yes - ROS ROS below otherwise negative: Yes Systems Reviewed and Negative: Yes All other systems reviewed and negative - CONSTITUTIONAL Constitutional: DENIES: Fever - EENT EENT: REPORTS: Eye problems - GASTROINTESTINAL Gastrointestinal: DENIES: Nausea - REPRODUCTIVE Reproductive: DENIES: : - DERM Skin Color: Erythema Skin Problems: None Past Medical History - General Information source: Patient - Social History Smoking Status: Never Smoker Chew tobacco use (# tins/day): No Frequency of alcohol use: None Drug Abuse: None Lives with: Family Family History: Reviewed & Not Pertinent Patient has suicidal ideation: No Patient has homicidal ideation: No - Medical History Medical History: Negative Renal/ Medical History: Denies: Hx Peritoneal Dialysis Surgical Hx: Negative - Immunizations Immunizations up to date: Yes Hx Diphtheria, Pertussis, Tetanus Vaccination: No Vertical Provider Document - CONSTITUTIONAL Agree With Documented VS: Yes Exam Limitations: No Limitations General Appearance: WD/WN, No Apparent Distress - INFECTION CONTROL TRAVEL OUTSIDE OF THE [place] IN LAST 30 DAYS: No - HEENT HEENT: Atraumatic, Normocephalic. negative: Tympanic Membrane Red, Tympanic Membrane Bulging Notes: Tenderness, swelling and erythema to left lower lid. Subtle swelling that extends to left maxillary facial area, no ptosis, no purulent drainage, no pain with movement of eye - NECK Neck: Normal Inspection, Supple. negative: Lymphadenopathy-Left, Lymphadenopathy-Right - RESPIRATORY Respiratory: No Respiratory Distress - MUSCULOSKELETAL/EXTREMETIES Musculoskeletal/Extremeties: MAEW - NEURO Level of Consciousness: Awake, Alert, Appropriate Motor/Sensory: No Motor Deficit - DERM Integumentary: Warm, Dry, No Rash Course - Re-evaluation Re-evalutation: 08/10/18 11:[address] Butler, Dr. Butler to bedside for examination. Recommends consu ltation with patient's sleeper cutter so that she could be seen in the office today for likely incision and drainage procedure. 08/10/18 11:[address] Cho regarding patient presentation to ER and worsening of her symptoms. States that patient likely would have worsening before it improves and that patient should continue her antibiotics. Discussed patient's pain symptoms as well as headache pain symptoms. Dr. Cho states that he will see the patient in the office and that she should be directed to come over directly after she leaves the emergency department. - Vital Signs Vital signs: Temp Pulse Resp BP Pulse Ox 98.5 F 97 16 127/80 H 98 08/10/18 09:02 08/10/18 09:02 08/10/18 09:02 08/10/18 09:02 08/10/18 09:02 Discharge - Discharge Clinical Impression: Meibomian gland dysfunction, Pain and swelling of eyelid of left eye Condition: Stable Disposition: HOME, SELF-CARE Instructions: Antibiotic Therapy ([facility]) Additional Instructions: Follow-up directly with Dr. Cho at the [facility] today for further evaluation Referrals: [facility] [Provider Group] - 08/10/18
[2018-08-10 11:33] VITALS: BP 149/85
== END 2018-08-10 11:35 | disposition home or self-care (01) ==
LOC: ER 08:50
DX: H02.8 Other specified disorders of eyelid (principal)
CPT/HCPCS: 99283